=== PATIENT | female | born 1945 | race Caucasian/White ===

== ENCOUNTER 2021-01-07 20:45 | Inpatient (IN) ==
[~2021-01-07 20:45] MED LIST: HEPARIN 5,000 UNIT/1 ML VIAL ONE; HYDROmorphone 2 MG/1 ML VIAL ONE; MIDAZOLAM 2 MG/2 ML VIAL ONE; TIROFIBAN 5,000 MCG/100 ML PREMIX IV ONE
[2021-01-07] MEDS ORDERED: NITROGLYCERIN SL 0.4 MG TABLET SL PRN (21:22)
[2021-01-07] MEDS ORDERED: ZALEPLON 5 MG CAPSULE PO PRN (21:22)
[2021-01-07] MEDS ORDERED: ONDANSETRON 4 MG/2 ML VIAL IV PRN (21:22)
[2021-01-07] MEDS ORDERED: SODIUM CHLORIDE 0.45% 1,000 ML IV SCH (21:30)
[2021-01-07] MEDS ORDERED: PNEUMOCOCCAL VACCINE (13 VALENT) 0.5 ML SYRINGE IM ONE (22:00)
[2021-01-07] MEDS: ROSUVASTATIN 20 MG TABLET PO SCH (22:15)
[2021-01-07] MEDS: carvediloL 3.125 MG TABLET PO SCH (22:15)
[2021-01-07 23:32] LABS: CKMB % 11.9 %
[2021-01-07 23:35] LABS: Troponin I 39.4 NG/ML (0.00-0.045)
[2021-01-08 03:54] LABS: Basophils % 0.2 % (0.0-0.8); Hematocrit 34.7 VOL% (35.7-47.0); Hemoglobin 11.3 GM/DL (12.0-16.0); Immature Granulocytes % 0.5 %; Immature Granulocytes Absolute 0.06 #; Lymphocytes # 2.5 10*3/uL (1.4-4.0); Mean Corpuscular HGB Conc 32.6 GM/DL (32-36); Mean Corpuscular Volume 94.3 FL (87-102); Mean Platelet Volume 9.7 FL (9.6-12.0); Monocytes % 7.3 % (1.7-12.7); Platelet Count 240 T/CUMM (130-400); Red Blood Count 3.68 MC/CUMM (3.8-5.5); Red Cell Distribution Width 12.2 % (9.3-17.3); White Blood Count 12.3 T/CUMM (4-12)
[2021-01-08 04:39] LABS: CKMB % 11.8 %; Osmolality,Calculated 284.3 MOS/KG (273-304); Potassium 3.4 MMOL/L (3.5-5.1)
[2021-01-08 04:48] LABS: Troponin I 76.6 NG/ML (0.00-0.045)
[2021-01-08] MEDS ORDERED: MECLIZINE 25 MG TABLET PO PRN (07:50)
[2021-01-08] MEDS ORDERED: HYOSCYAMINE 0.125 MG TABLET SL PRN (07:56)
[2021-01-08] MEDS: INSULIN REGULAR 100 UNIT/ML SUBCUT SCH ×4 (08:06→21:33)
[2021-01-08] MEDS: TICAGRELOR 90 MG TABLET PO SCH ×2 (08:35→21:31)
[2021-01-08] MEDS: ASPIRIN EC 81 MG TABLET PO SCH (08:35)
[2021-01-08] MEDS: ASCORBIC ACID 500 MG TABLET PO SCH ×2 (08:36→21:30)
[2021-01-08] MEDS: buPROPion XL 150 MG TABLET PO SCH (08:36)
[2021-01-08] MEDS: carvediloL 3.125 MG TABLET PO SCH ×2 (08:36→21:30)
[2021-01-08] MEDS: ROSUVASTATIN 20 MG TABLET PO SCH (21:30)
[2021-01-09 05:33] LABS: Risk Ratio 3.04; VLDL CHOLESTEROL 10.8 MG/DL
[2021-01-09] MEDS: INSULIN REGULAR 100 UNIT/ML SUBCUT SCH ×4 (08:09→21:50)
[2021-01-09] MEDS: TICAGRELOR 90 MG TABLET PO SCH ×2 (08:37→21:50)
[2021-01-09] MEDS: ASCORBIC ACID 500 MG TABLET PO SCH ×2 (08:38→21:49)
[2021-01-09] MEDS: buPROPion XL 150 MG TABLET PO SCH (08:38)
[2021-01-09] MEDS: carvediloL 3.125 MG TABLET PO SCH ×2 (08:38→21:50)
[2021-01-09] MEDS: ASPIRIN EC 81 MG TABLET PO SCH (08:38)
[2021-01-09 09:53] LABS: Basophils % 0.3 % (0.0-0.8); Eosinophils # 0.2 10*3/uL (0.0-0.87); Eosinophils % 2.4 % (0.00-10.9); Hemoglobin 11.6 GM/DL (12.0-16.0); Immature Granulocytes % 0.5 %; Immature Granulocytes Absolute 0.04 #; Lymphocytes # 2.7 10*3/uL (1.4-4.0); Lymphocytes % 31.1 % (21.3-54.2); Mean Corpuscular HGB Conc 33.1 GM/DL (32-36); Mean Corpuscular Volume 92.3 FL (87-102); Mean Platelet Volume 9.7 FL (9.6-12.0); Monocytes % 10.6 % (1.7-12.7); Neutrophils % 55.1 % (38.7-73.9); Platelet Count 212 T/CUMM (130-400); Red Blood Count 3.79 MC/CUMM (3.8-5.5); Red Cell Distribution Width 12.4 % (9.3-17.3); White Blood Count 8.8 T/CUMM (4-12)
[2021-01-09 10:18] LABS: CKMB % 3.2 %; Osmolality,Calculated 286.1 MOS/KG (273-304); Potassium 3.4 MMOL/L (3.5-5.1); Troponin I 12.7 NG/ML (0.00-0.045)
[2021-01-09] MEDS: lisinopriL 2.5 MG TABLET PO SCH (10:27)
[2021-01-09] MEDS ORDERED: MAGNESIUM SULF RIDER 2 GM in PREMIX 1 EACH IV ONE (10:35)
[2021-01-09] MEDS ORDERED: POTASSIUM CHLORIDE 20 MEQ TABLET PO ONE (10:36)
[2021-01-09] MEDS: MAGNESIUM CHLORIDE 64 MG TABLET PO SCH (21:50)
[2021-01-09] MEDS: ROSUVASTATIN 20 MG TABLET PO SCH (21:50)
[2021-01-10 05:53] LABS: Basophils % 0.3 % (0.0-0.8); Eosinophils # 0.4 10*3/uL (0.0-0.87); Eosinophils % 4.4 % (0.00-10.9); Hematocrit 31.4 VOL% (35.7-47.0); Hemoglobin 10.9 GM/DL (12.0-16.0); Immature Granulocytes % 0.2 %; Immature Granulocytes Absolute 0.02 #; Lymphocytes # 2.9 10*3/uL (1.4-4.0); Lymphocytes % 31.1 % (21.3-54.2); Mean Corpuscular HGB Conc 34.7 GM/DL (32-36); Mean Platelet Volume 9.9 FL (9.6-12.0); Monocytes % 10.3 % (1.7-12.7); Neutrophils % 53.7 % (38.7-73.9); Platelet Count 211 T/CUMM (130-400); Red Blood Count 3.45 MC/CUMM (3.8-5.5); Red Cell Distribution Width 12.4 % (9.3-17.3); White Blood Count 9.3 T/CUMM (4-12)
[2021-01-10 06:18] LABS: Calcium 8.2 MG/DL (8.5-10.1); Osmolality,Calculated 280.4 MOS/KG (273-304); Potassium 3.8 MMOL/L (3.5-5.1)
[2021-01-10 08:12] VITALS: BP 137/72
[2021-01-10] MEDS: MAGNESIUM CHLORIDE 64 MG TABLET PO SCH (08:14)
[2021-01-10] MEDS: carvediloL 3.125 MG TABLET PO SCH (08:14)
[2021-01-10] MEDS: buPROPion XL 150 MG TABLET PO SCH (08:14)
[2021-01-10] MEDS: lisinopriL 2.5 MG TABLET PO SCH (08:14)
[2021-01-10] MEDS: ASCORBIC ACID 500 MG TABLET PO SCH (08:14)
[2021-01-10] MEDS: ASPIRIN EC 81 MG TABLET PO SCH (08:14)
[2021-01-10] MEDS: TICAGRELOR 90 MG TABLET PO SCH (08:15)
[2021-01-10] MEDS: INSULIN REGULAR 100 UNIT/ML SUBCUT SCH (08:15)
== END 2021-01-10 10:12 | disposition home or self-care (01) | DRG 247 ==
LOC: N.CL 20:45 → N.ICU 20:45 → OBSVTOIN 20:46 → N.ICU 21:22 → N.TELES 01-08 11:26 → N.ICU 01-09 09:31
PROVIDERS: ADMIT Internal Medicine Cardiovascular Disease; ATTEND Internal Medicine Cardiovascular Disease